=== PATIENT | male | born 1945 | race Caucasian/White ===

== ENCOUNTER 2017-12-02 11:09 | Outpatient (CLI) | payer MEDICARE | END 2017-12-02 11:10 | disposition home or self-care (01) | LOC: BICRAD 11:09 | PROVIDERS: ATTEND Podiatrist | DX: M19.90 Unspecified osteoarthritis, unspecified site (principal) ==

== ENCOUNTER 2018-02-10 15:25 | Outpatient (CLI) | payer MEDICARE ==
--- NOTE | 2018-02-10 16:05 | ULT ---
ULTRASOUND WITH DOPPLER DUPLEX VENOUS LOWER EXTREMITY LEFT: Date: 02/10/18 Time: 1543 hours HISTORY: 72-year-old male with left lower extremity pain and edema. Dr. Tee left a message on Dr. Gates's voicemail regarding the positive finding of deep venous thrombos is, at 1550 hours on 02/10/18. Dr. Tee discussed the findings by telephone with [facility] ER physician, Julian Parker, at 1553 hours. The patient is being taken from the ultrasound department to the ER at the time of this dictation. The advice clerk, Katharine, notified the patient o f the positive finding. TECHNIQUE: Color flow Doppler, spectral waveform analysis of pulsed Doppler, and cardoso-scale imaging with harpal uriel and augmentation, were used to evaluate the left common femoral, femoral, popliteal, posterior t ibial, and superficial femoral, veins; and the proximal portions of the profunda femoral and greater saphenous, veins. FINDINGS: There is acute, expansile thrombosis beginning at the bifurcation of the left common femoral vein, in volving the profunda femoral vein, entire femoral vein, and entire popliteal vein. The posterior tibi al vein at the ankle does not appear to be involved. There is absence of blood flow in the popliteal vein and in the femoral vein. There is blood flow, de spite the presence of thrombus, in the greater saphenous vein and profunda femoral vein. The proximal portion of the common femoral vein is not involved. IMPRESSION: Positive for acute deep venous thrombosis of the left lower extremity, from the bifurcation of the co mmon femoral vein through the popliteal vein. CODE CR. JN R POS: SHANNAN
== END 2018-02-10 15:26 | disposition home or self-care (01) ==
LOC: SCSULT 15:25
PROVIDERS: ATTEND Orthopaedic Surgery
DX: M79.89 Other specified soft tissue disorders (principal); M79.662 Pain in left lower leg; I82.412 Acute embolism and thrombosis of left femoral vein; I82.432 Acute embolism and thrombosis of left popliteal vein

== ENCOUNTER 2018-02-10 15:57 | Emergency (ER) | payer MEDICARE ==
[2018-02-10] MEDS ORDERED: Rivaroxaban 10 MG TAB ONE (16:36)
== END 2018-02-10 17:00 | disposition home or self-care (01) ==
LOC: SCSER 15:57
DX: I82.4Z2 Acute embolism and thrombosis of unspecified deep veins of left distal lower extremity (principal); C91.10 Chronic lymphocytic leukemia of B-cell type not having achieved remission
CPT/HCPCS: 99283

== ENCOUNTER 2018-10-12 09:55 | Outpatient (CLI) | payer MEDICARE ==
--- NOTE | 2018-10-12 11:12 | ULT ---
ULTRASOUND WITH DOPPLER DUPLEX VENOUS LOWER EXTREMITY LEFT: CPT: 06250 ICD-10-PCS: B54D INDICATION: History of deep venous thrombosis. Patient is being treated with anticoagulant therapy. Multiple prior examinations are referenced, including most recent exam from [facility] ed May 2018. TECHNIQUE: Color flow Doppler, spectral waveform analysis of pulsed Doppler, and cardoso-scale imaging with harpal uriel and augmentation, were used to evaluate the left common femoral, femoral, popliteal, posterior t ibial, and superficial femoral, veins; and the proximal portions of the profunda femoral and greater saphenous, veins. FINDINGS: Redemonstration of abnormal increased echogenicity of the intraluminal aspect of the distal femoral t hrough popliteal vein compatible with occlusive thrombus. The more proximal to mid aspect of the femo ral vein, as well as the imaged venous structures of the leg proper, below level of knee, are patent. IMPRESSION: Grossly stable occlusive thrombus involving distal femoral vein and popliteal vein. POS: OFF
== END 2018-10-12 09:56 | disposition home or self-care (01) ==
LOC: BICULT 09:55
PROVIDERS: ATTEND Internal Medicine
DX: R60.0 Localized edema (principal); I82.412 Acute embolism and thrombosis of left femoral vein; I82.432 Acute embolism and thrombosis of left popliteal vein

== ENCOUNTER 2018-10-27 11:30 | Outpatient (CLI) | payer MEDICARE ==
--- NOTE | 2018-10-27 13:36 | MRI ---
MRI OF THE RIGHT KNEE WITHOUT CONTRAST: INDICATION: History of grade I MCL injury; history of right knee 2 weeks ago with a twisting-type mechanism. No history of prior knee surgery or prior knee injury. The pain is reportedly worse with activity and i s predominantly medial based. COMPARISON: None. TECHNIQUE: Multiplanar, multisequence MR images were obtained of the right knee without contrast. FINDINGS: A small amount of edema is seen overlying an intact MCL consistent with the patient's clinical histor y of a grade I MCL sprain. Additionally, the patient has severe chondral thinning diffusely throughout the medial femorotibial j oint compartment with numerous subchondral cyst-like abnormalities involving the medial tibial platea u and medial femoral condyle with surrounding reactive marrow edema. There are prominent marginal osteophytes affecting all major compartments, but most severely the medi al femorotibial joint compartment. There is complex degenerative fraying of the body and posterior horn of the medial meniscus consisten t with degenerative tears. There is partial extrusion of the medial meniscus. There is a horizontally oriented tear involving the posterior horn of the lateral meniscus. There is moderate diffuse chondral thinning involving the lateral femorotibial joint compartment. Th ere is a full-thickness area of articular cartilage fissuring with delamination measuring 1.1 cm invo lving the median patellar ridge. There is a small-size semimembranous-medial gastrocnemius popliteal cyst. The extensor mechanism is intact. The ACL, PCL, and LCLC are intact. The popliteus and IT band are normal-appearing. No enlarged lymph nodes are present. No acute fracture is demonstrated. There is fragmentation of the tibial tuberosity which can be seen old Freddie-Schlatter's pathology. IMPRESSION: 1. Severe osteoarthrosis of the right knee predominantly affecting the medial femorotibial joint com partment where there is some reactive subchondral marrow edema and numerous subchondral cysts. No vi sible fracture line is evident. There is a complex degenerative-type medial meniscal tear involving the body and posterior horn of the medial meniscus with extrusion of the meniscus. 2. Horizontally oriented tear involving the posterior horn of the lateral meniscus. 3. Grade I medial collateral ligament sprain. 4. The anterior cruciate ligament, posterior cruciate ligament, and LCLC are intact. The extensor m echanism is intact. POS: TPC
== END 2018-10-27 11:31 | disposition home or self-care (01) ==
LOC: SCSMRI 11:30
PROVIDERS: ATTEND Orthopaedic Surgery
DX: S83.411A Sprain of medial collateral ligament of right knee, initial encounter (principal); M17.11 Unilateral primary osteoarthritis, right knee; S83.281A Other tear of lateral meniscus, current injury, right knee, initial encounter; S83.231A Complex tear of medial meniscus, current injury, right knee, initial encounter; S83.241A Other tear of medial meniscus, current injury, right knee, initial encounter; R60.0 Localized edema

== ENCOUNTER 2024-08-09 10:27 | Outpatient (CLI) | payer MEDICARE | END 2024-08-09 10:28 | disposition home or self-care (01) | LOC: BICMRI 10:27 | PROVIDERS: ATTEND Orthopaedic Surgery | DX: M48.062 Spinal stenosis, lumbar region with neurogenic claudication (principal); M48.07 Spinal stenosis, lumbosacral region; S32.019A Unspecified fracture of first lumbar vertebra, initial encounter for closed fracture | CPT/HCPCS: 72148 ==

== ENCOUNTER 2025-01-31 09:59 | Outpatient (CLI) | payer MEDICARE ==
[2025-01-31 11:53] LABS: Hematocrit 39.3 % (42.0-52.0); Hemoglobin 12.7 g/dL (14.0-18.0); Mean Corpuscular Hemoglobin 28.9 pg (27.0-31.0); Mean Corpuscular Volume 89.3 fL (78.0-98.0); Platelet Count 241 10x3/uL (130-400); Red Blood Cell (RBC) Count 4.40 mill/uL (4.70-6.10); White Blood Cell (WBC) Count 13.50 10x3/uL (4.8-10.8)
[2025-01-31 11:59] LABS: Bacteria/HPF None Seen HPF (None Seen); Glucose, Urine (Dipstick) Normal (Negative); Leukocyte Negative Leu/uL (Negative); Protein, Urine (Dipstick) Negative (Neg-Trace); RBC/HPF 0-3 HPF (0-3); Specific Gravity, Urine 1.014 (1.002-1.036); WBC/HPF 0-3 HPF (0-3)
[2025-01-31 12:06] LABS: INR-International Normal Ratio 2.0; Prothrombin Time 22.6 sec (12.0-14.7)
[2025-01-31 12:12] LABS: Platelet Adequacy Comment Platelets Normal; RBC Morphology Within Normal Limits; Smudge Cells 51.5 %
[2025-01-31 12:19] LABS: Anion Gap 11 mmol/L (10-20); BUN (Urea Nitrogen) 15 mg/dL (8.4-25.7); Calc. Creatinine Clearance 0 mL/min (70-130); Calcium 9.1 mg/dL (7.8-10.44); Carbon Dioxide 27 mmol/L (23-31); Chloride 106 mmol/L (98-107); Glucose 100 mg/dL (83-110); Potassium 4.4 mmol/L (3.5-5.1); Sodium 140 mmol/L (136-145)
== END 2025-01-31 10:00 | disposition home or self-care (01) ==
LOC: LABBT 09:59
PROVIDERS: ATTEND Orthopaedic Surgery
DX: Z01.818 Encounter for other preprocedural examination (principal); M17.11 Unilateral primary osteoarthritis, right knee
CPT/HCPCS: 71046; 80048; 81001; 85025; 85610; 87081; 93005; 93010

== ENCOUNTER 2025-02-07 09:22 | Observation (INO) | payer MEDICARE ==
[2025-01-31 10:24] VITALS: BMI 33.9
[2025-02-07] MEDS ORDERED: Ropivacaine 0.5% HCl/PF (150 MG/30 ML VIAL) ONE (09:46)
[2025-02-07] MEDS ORDERED: Lidocaine 1% (PF) 30 ML VIAL ONE (09:46)
[2025-02-07] MEDS ORDERED: Tranexamic Acid 1,000 MG/10 ML VIAL ONE ×2 (10:31→13:11)
[2025-02-07] MEDS ORDERED: Vancomycin HCl 1.5 GM VIAL ONE (10:31)
[2025-02-07] MEDS ORDERED: CEFAZOLIN 2 GM VIAL ONE (10:55)
[2025-02-07] MEDS ORDERED: Ropivacaine 0.2% 550 ML 550 ML NERVE BLCK SCH (11:15)
[2025-02-07] MEDS ORDERED: PROPOFOL 20 ML ONE (11:17)
[2025-02-07] MEDS ORDERED: Ondansetron PF 4 MG/2 ML Vial ONE (11:18)
[2025-02-07] MEDS ORDERED: Lidocaine 1% PF 5 ML VIAL ONE (11:18)
[2025-02-07] MEDS ORDERED: PHENYLEPHRINE-NS 100 MCG/ML 10 ML SYRINGE ONE (11:34)
[2025-02-07] MEDS ORDERED: Bupivacaine 0.25% HCL 30 ML VIAL ONE (11:50)
[2025-02-07] MEDS ORDERED: Ketorolac Tromethamine 30 MG (1 mL) VIAL IVP SCH (12:00)
[2025-02-07] MEDS ORDERED: Ondansetron PF 4 MG/2 ML Vial IVP PRN (13:00)
[2025-02-07] MEDS ORDERED: diphenhydrAMINE 25 MG CAP PO PRN (13:00)
[2025-02-07] MEDS ORDERED: HYDROmorphone 0.5 MG/0.5 ML SYRINGE ONE (13:44)
[2025-02-07] MEDS: Lisinopril 10 MG TAB PO SCH (20:46)
[2025-02-07] MEDS: Senokot S 8.6-50 MG TAB PO SCH (20:46)
[2025-02-07] MEDS: Aspirin 81 mg Enteric Coated Tablet PO SCH (20:46)
[2025-02-07] MEDS: Ferrous Gluconate 324 MG TAB PO SCH (20:46)
[2025-02-07] MEDS: Ezetimibe 10 MG TAB PO SCH (20:49)
[2025-02-07] MEDS: Rosuvastatin 20 MG TAB PO SCH (20:49)
[2025-02-07] MEDS: HYDROcodone/Acetaminophen 10/325 mg Tablet PO PRN (20:54)
[2025-02-07] MEDS: Ondansetron PF 4 MG/2 ML Vial IVP PRN (22:30)
[2025-02-07] MEDS: Acetaminophen 325 MG TAB PO PRN (22:32)
[2025-02-08 05:59] LABS: Hematocrit 38.3 % (42.0-52.0); Hemoglobin 12.4 g/dL (14.0-18.0); Mean Corpuscular Hemoglobin 28.6 pg (27.0-31.0); Mean Corpuscular Volume 88.5 fL (78.0-98.0); Platelet Count 217 10x3/uL (130-400); Red Blood Cell (RBC) Count 4.33 mill/uL (4.70-6.10); White Blood Cell (WBC) Count 16.91 10x3/uL (4.8-10.8)
[2025-02-08 08:18] VITALS: BP 149/81; TEMP 97.7
[2025-02-08] MEDS ORDERED: Aspirin Chewable 81 MG TAB PO SCH (09:00)
[2025-02-08] MEDS: Metoprolol Succinate XL 100 MG ER.TAB PO SCH (09:46)
[2025-02-08] MEDS: Pantoprazole 40 MG DR.TAB PO SCH (09:46)
[2025-02-08] MEDS: Multivitamin W/ Minerals 1 TAB PO SCH (09:46)
[2025-02-08] MEDS: HYDROcodone/Acetaminophen 10/325 mg Tablet PO PRN (10:56)
[2025-02-08] MEDS ORDERED: Allopurinol 100 MG TAB PO SCH (12:00)
== END 2025-02-08 12:55 | disposition home or self-care (01) ==
LOC: SDC 09:22 → SURG A 14:43 → SDC 17:19 → SURG A 17:20
PROVIDERS: ADMIT Orthopaedic Surgery; ATTEND Orthopaedic Surgery
PROC: 0SRC0JZ Replacement of Right Knee Joint with Synthetic Substitute, Open Approach (ICD-10-PCS; principal; 2025-02-07)
PROC: 3E0T3BZ Introduction of Anesthetic Agent into Peripheral Nerves and Plexi, Percutaneous Approach (ICD-10-PCS; 2025-02-07)
DX: M17.11 Unilateral primary osteoarthritis, right knee (principal); I25.10 Atherosclerotic heart disease of native coronary artery without angina pectoris; E78.5 Hyperlipidemia, unspecified; I10 Essential (primary) hypertension; M48.062 Spinal stenosis, lumbar region with neurogenic claudication; K21.9 Gastro-esophageal reflux disease without esophagitis; Z79.899 Other long term (current) drug therapy; Z91.041 Radiographic dye allergy status; Z91.048 Other nonmedicinal substance allergy status
CPT/HCPCS: 0055T; 27447; 64447; 36415; 85027; A4306; C1713; C1776; C1889; J0665; J1100; J1171; J2250; J2405; J2704; J2795; J3010; J7030